=== PATIENT | male | born 1965 | race Caucasian/White ===

== ENCOUNTER 2017-06-24 07:36 | Observation (INO) | payer BC ==
--- NOTE | 2017-06-24 08:02 | EKG REPORT ---
SEVERITY:- BORDERLINE ECG - SINUS RHYTHM : Confirmed by: Srinath Samuels MD 24-Jun-2017 08:00:41
[2017-06-24] MEDS ORDERED: ASPIRIN 81 MG TABLET, CHEWABLE PO ONE (08:05)
[2017-06-24 08:24] LABS: ABSOLUTE BASOPHILS # (AUTO) 0.1 10^3/uL (0.0-0.2); ABSOLUTE EOSINOPHILS # (AUTO) 0.2 10^3/uL (0.0-0.6); ABSOLUTE LYMPHOCYTES (AUTO) 2.7 10^3/uL (0.5-4.7); ABSOLUTE NEUT (AUTO) 6.5 10^3/uL (1.7-8.2); BASOPHILS % (AUTO) 0.8 % (0-2); EOSINOPHILS % (AUTO) 1.7 % (0-6); HEMATOCRIT 50.2 % (37.9-51.0); HEMOGLOBIN 17.3 g/dL (13.5-17.0); HGB HCT DIFFERENCE 1.7; LYMPHOCYTES % (AUTO) 25.6 % (13-45); MEAN CORPUSCULAR HEMOGLOBIN 31.5 pg (27.0-33.4); MEAN CORPUSCULAR HGB CONC 34.5 g/dL (32.0-36.0); MEAN CORPUSCULAR VOLUME 91 fl (80-97); RED BLOOD COUNT 5.51 10^6/uL (4.35-5.55); RED CELL DISTRIBUTION WIDTH 12.7 % (11.5-14.0); SEGMENTED NEUTROPHILS % (AUTO) 61.9 % (42-78); WHITE BLOOD COUNT 10.4 10^3/uL (4.0-10.5)
[2017-06-24 08:49] LABS: ALANINE AMINOTRANSFERASE 57 U/L (21-72); ALBUMIN 4.9 g/dL (3.5-5.0); ALKALINE PHOSPHATASE 69 U/L (38-126); ANION GAP 13 (5-19); ASPARTATE AMINO TRANSFERASE 22 U/L (17-59); BILIRUBIN,DIRECT 0.5 mg/dL (0.0-0.4); BILIRUBIN,TOTAL 1.2 mg/dL (0.2-1.3); BLOOD UREA NITROGEN 15 mg/dL (7-20); CALCIUM 9.8 mg/dL (8.4-10.2); CARBON DIOXIDE 28 mmol/L (22-30); CHLORIDE 102 mmol/L (98-107); CREATINE KINASE 62 U/L (55-170); CREATININE RESULT 1.13 mg/dL (0.52-1.25); GLUCOSE 116 mg/dL (75-110); LIPASE 61.9 U/L (23-300); POTASSIUM 4.2 mmol/L (3.6-5.0); SODIUM 143.4 mmol/L (137-145); TOTAL PROTEIN 8.4 g/dL (6.3-8.2)
[2017-06-24 09:00] LABS: TROPONIN I < 0.012 ng/mL
--- NOTE | 2017-06-24 09:03 | RADIOLOGY REPORT (SQ) ---
EXAM DESCRIPTION: CHEST SINGLE VIEW COMPLETED DATE/TIME: 06/24/2017 8:36 am REASON FOR STUDY: cp COMPARISON: None. EXAM PARAMETERS: NUMBER OF VIEWS: One view. TECHNIQUE: Single frontal radiographic view of the chest acquired. RADIATION DOSE: NA LIMITATIONS: None. FINDINGS: LUNGS AND PLEURA: No opacities, masses or pneumothorax. No pleural effusion. MEDIASTINUM AND HILAR STRUCTURES: No masses. Contour normal. HEART AND VASCULAR STRUCTURES: Heart normal in size. Normal vasculature. BONES: No acute findings. HARDWARE: None in the chest. OTHER: No other significant finding. IMPRESSION: NO ACUTE RADIOGRAPHIC FINDING IN THE CHEST. TECHNICAL DOCUMENTATION: JOB ID: [id number] [employer]- All Rights Reserved
[2017-06-24 09:05] LABS: APPEARANCE,URINE CLEAR; BILIRUBIN,URINE NEGATIVE (NEGATIVE); GLUCOSE, URINE NEGATIVE (NEGATIVE); KETONES,URINE NEGATIVE (NEGATIVE); LEUKOCYTE ESTERASE,URINE NEGATIVE (NEGATIVE); NITRITE,URINE NEGATIVE (NEGATIVE); PROTEIN,URINE NEGATIVE (NEGATIVE); URINE SPECIFIC GRAVITY 1.015; UROBILINOGEN,URINE NEGATIVE mg/dL (<2.0)
--- NOTE | 2017-06-24 09:32 | ER Document Report ---
ED Cardiac - General Chief Complaint: Chest Pain Stated Complaint: CHEST PAIN Time Seen by Provider: 06/24/17 08:02 Mode of Arrival: Ambulatory Information source: Patient Notes: Patient is a 52-year-old male who presents to the ER today for approximately 20 minutes of chest pain this morning at 7 AM that was on and off. Patient states that it did radiate up to his left shoulder. He states that he was trying to get dressed and get the kids ready to go to school when it came on. He states the pain felt like a sharp pain. He denies any history of any heart attack or stroke, but does take medication for high blood pressure and high cholesterol. He denies any shortness of breath or nausea with this. He denies any radiation into the left arm or the left jaw. He denies smoking. TRAVEL OUTSIDE OF THE [place] IN LAST 30 DAYS: No - Related Data Allergies/Adverse Reactions: No Known Allergies Allergy (Unverified 06/24/17 07:47) Home Medications: Current Home Medications Amlodipine Besylate [Norvasc 5 mg Tablet] 5 mg PO DAILY 06/24/17 [History] Atorvastatin Calcium [Lipitor 10 mg Tablet] 10 mg PO QHS 06/24/17 [History] Multivitamin [Tab-A-Barry (Multiple Vitamin) Tablet] 1 tab PO DAILY 06/24/17 [ History] Past Medical History - General Information source: Patient - Social History Smoking Status: Never Smoker Frequency of alcohol use: None Drug Abuse: None Family History: Reviewed & Not Pertinent Patient has suicidal ideation: No Patient has homicidal ideation: No Renal/ Medical History: Denies: Hx Peritoneal Dialysis Review of Systems - Review of Systems Constitutional: No symptoms reported EENT: No symptoms reported Cardiovascular: See HPI Respiratory: No symptoms reported Gastrointestinal: No symptoms reported Genitourinary: No symptoms reported Male Genitourinary: No symptoms reported Musculoskeletal: No symptoms reported Skin: No symptoms reported Hematologic/Lymphatic: No symptoms reported Neurological/Psychological: No symptoms reported Physical Exam - Vital signs Vitals: Temp Pulse Resp BP Pulse Ox 98.0 F 105 H 16 150/99 H 99 06/24/17 07:49 06/24/17 07:49 06/24/17 07:49 06/24/17 07:49 06/24/17 07:49 - Notes Notes: PHYSICAL EXAMINATION: GENERAL: Well-appearing and in no acute distress. HEAD: Atraumatic, normocephalic. EYES: Pupils equal round and reactive to light, extraocular movements intact, sclera anicteric, conjunctiva are normal. ENT: ear canals without erythema or foreign body, TMs [place] with good bony landmarks, nares patent, oropharynx clear without exudates. Moist mucous membranes. NECK: Normal range of motion, supple without lymphadenopathy LUNGS: CTAB and equal. No wheezes rales or rhonchi. HEART: Regular rate and rhythm without murmurs ABDOMEN: Soft, no tenderness. No guarding, no rebound BACK: no vertebral tenderness, normal ROM GI/: no CVA tenderness EXTREMITIES: Normal range of motion, no pitting edema. No cyanosis. NEUROLOGICAL: Cranial nerves grossly intact. Normal sensory/motor exams. PSYCH: Normal mood, normal affect. SKIN: Warm, Dry, normal turgor, no rashes or lesions noted Course - Re-evaluation Re-evalutation: 06/24/17 11:02 Lab work is unremarkable today including normal cardiac enzymes 1, EKG reveals no evidence of ischemia or abnormality with a normal sinus rhythm, chest x ray negative, is patient does have risk factors including age, hypertension, hyperlipidemia and unknown family history. At this time patient was admitted for chest pain rule out, stress test to be done here in the hospital. Heart score is 2-3, giving him a 0.9-1.7% chance of major adverse cardiac event in the 6 weeks. 06/24/17 11:08 - Vital Signs Vital signs: Temp Pulse Resp BP Pulse Ox 98.8 F 90 18 129/75 H 99 06/24/17 15:51 06/24/17 15:51 06/24/17 15:51 06/24/17 15:51 06/24/17 15:51 - Laboratory Result Diagrams: 06/24/17 08:10 06/24/17 08:10 Laboratory results interpreted by me: 06/24/17 06/24/17 06/24/17 08:10 08:10 08:39 Hgb 17.3 H Glucose 116 H Direct Bilirubin 0.5 H Total Protein 8.4 H Urine Blood SMALL H Discharge - Discharge Clinical Impression: Chest pain Qualifiers: Chest pain type: unspecified Qualified Code(s): R07.9 - Chest pain, unspecified Condition: Stable Disposition: ADMITTED OBSERVATION Admitting Provider: Hospitalist Unit Admitted: Telemetry
[2017-06-24] MEDS ORDERED: ONDANSETRON 4 MG TAB.RAPDIS PO PRN (10:25)
[2017-06-24] MEDS ORDERED: ACETAMINOPHEN 325 MG TABLET PO PRN (10:25)
[2017-06-24] MEDS ORDERED: ENOXAPARIN SODIUM INJ 40 MG/0.4 ML DISP.SYRIN SUBCUT ONE (11:30)
--- NOTE | 2017-06-24 16:08 | HISTORY AND PHYSICAL E ---
History and Physical NAME: TED PETERS : 1965 AGE: 52Y ADMITTED: 06/24/2017 ROOM: 530 PRIMARY CARE PROVIDER: Dr. Ricardo Nichols. CHIEF COMPLAINT: Chest pain. HISTORY OF PRESENT ILLNESS: The patient is a 52-year-old male with a past medical history of hypertension and hyperlipidemia. The patient presented to the Emergency Department with a chief complaint of chest pain. According to the patient, he was getting ready for work this morning when he noticed a sharp substernal chest pain which radiated up into his left shoulder. The patient states that the pain was very sharp and "got his attention." The patient took a few minutes in regrouping himself and during that time, he denied any nausea, vomiting. No diaphoresis, shortness of breath. The patient had spontaneous resolution of symptoms. However, because of his risk factors, he came to the Emergency Department for evaluation. Upon presentation to the Emergency Department, the patient was found to be normotensive with an unremarkable set of cardiac enzymes. EKG revealed sinus rhythm, and the patient was referred to the hospitalist for observation and management. PAST MEDICAL HISTORY: 1. Hypertension. 2. Hyperlipidemia. PAST SURGICAL HISTORY: Negative. ALLERGIES: No known drug allergies. HOME MEDICATIONS: 1. Multivitamin 1 tablet p.o. daily. 2. Lipitor 10 mg p.o. q. hour sleep. 3. Norvasc 5 mg p.o. daily. SOCIAL HISTORY: The patient currently resides at home with his , who is also his surrogate decision maker. She may be reached at [phone]. The patient is self-employed in the construction industry and operates heavy machinery. The patient denies any tobacco use or illicit drug use. The patient does admit to frequent drinking, but denies drinking on a nightly basis. Denies any previous history of withdrawal or suspected dependency. FAMILY MEDICAL HISTORY: The patient's father is in 1991 from a plane crash. The patient's mother is alive with no known medical problems. The patient has brothers, all of which are healthy. The patient denies any family history of coronary artery disease and actually expresses longevity in his dad's side of the family. REVIEW OF SYSTEMS: CONSTITUTIONAL: The patient denies any fevers, chills, dizziness, weakness, or loss of appetite. SKIN: The patient denies any diaphoresis, rashes, bruising, itching. HEENT: Denies any vision changes, hearing loss, nasal drainage, sore throat. No headache. CARDIOVASCULAR SYSTEM: No heart palpitations or edema, but does admit to chest pain. RESPIRATORY: Denies any cough, sputum production, or hemoptysis. GASTROINTESTINAL: Denies any nausea, vomiting, diarrhea, abdominal pain, bloody hematemesis, constipation, melena, hematochezia. GENITOURINARY: Denies any hematuria, pyuria or dysuria. MUSCULOSKELETAL: Denies any acute or chronic joint pains. NEUROLOGICAL: Denies seizures, tremors, loss of consciousness. HEMATOLOGICAL: Denies any leopoldo bleeding, easy bruising. ENDOCRINE: Denies any recent weight changes. PSYCHIATRIC: Denies suicidal or homicidal ideations or intense stress. The rest of review of the other organ systems is negative. PHYSICAL EXAMINATION: GENERAL: On examination, the patient is a well-developed, well-nourished 52-year-old male who is awake, alert, and oriented to person, place, time and situation. He is verbal, conversational, ambulatory, does not appear to be in any acute distress. VITAL SIGNS: Temperature is 98.0, pulse 69, respirations 14, blood pressure 145/94, oxygen saturation 95% on room air. SKIN: Warm and dry. No rash. He is not diaphoretic. HEENT: Pupils equal, round, reactive to light and accommodation. Conjunctiva is pink. Sclera is nonicteric. There are no mouth lesions. Tongue is midline. NECK: Supple. No JVD. No palpable lymphadenopathy or thyromegaly. CARDIOVASCULAR SYSTEM: Heart is regular. There is no murmur or rub. CHEST: Clear, symmetrical, unlabored. ABDOMEN: Soft, nontender, nondistended. Bowel sounds are present. No palpable organomegaly. BACK: No CVA tenderness or sacral edema. EXTREMITIES: No clubbing, cyanosis, edema, or peripheral signs of embolization, +2 pedal pulses noted bilaterally. PSYCHIATRIC: Appropriate affect. Pleasant mood. DIAGNOSTICS: Lab values are as follows: Hematology obtained on 06/24/2017: WBCs are 3.4, hemoglobin is 17.3, hematocrit is 50.2, platelet count is 209,000. Chemistry obtained on 06/24/2017: Sodium is 143, potassium 4.2, chloride is 102, carbon dioxide 28, BUN 15, creatinine is 1.13, glucose 116, calcium is 9.8, bilirubin is 1.2, AST 22, ALT is 57, alk phos 69, CK is 62, CK-MB is 0.50. Troponin is 0.012. Total protein 8.4, albumin 4.9, lipase is 61.9. Urinalysis obtained on 06/24/2017: Color yellow, appearance clear, pH is 6.0, specific gravity is 1.015, protein negative, glucose negative, ketones negative, occult blood small, nitrite negative, bilirubin negative, urobilinogen is negative, leukocyte esterase is negative, WBCs are 0, RBCs are 2, mucus rare, ascorbic acid is negative. EKG obtained on 06/24/2017 reveals sinus rhythm. Chest x-ray obtained on 06/24/2017 reveals no acute radiographic finding of the chest. Chest x-ray obtained on 06/24/2017 reveals no acute cardiopulmonary findings. EKG obtained on 06/24/2017 reveals normal sinus rhythm. IMPRESSION AND PLAN: 1. Chest pain. We will observe the patient in continuous telemetry. We will obtain serial cardiac enzymes, fasting lipids, and start the patient on aspirin and statin therapy. We will schedule for Cardiolite stress test in the a.m. and follow. 2. Hypertension. We will resume the patient's home blood pressure medications once reconcilable. 3. Hyperlipidemia. We will continue statin. DISPOSITION: The patient is a full code. Pending the patient's symptomatology and diagnostic findings, we will reevaluate tomorrow for discharge. We will observe the patient in continuous telemetry, as the patient's expected length of stay should not surpass 2 midnights. Time spent on this admission including assessment, plan, physical examination, patient education and review of records is 40 minutes. DICTATING PHYSICIAN: NANETTE LION NP [id number] PHY#: [id number] ID: [id number] JOB#: [id number] ACCT: [id number] cc:ASTRID ALLISON M.D. >
[2017-06-24] MEDS: LANSOPRAZOLE 30 MG TAB.RAP.DR PO SCH (17:03)
[2017-06-24] MEDS: DOCUSATE SODIUM 100 MG CAPSULE PO SCH (17:04)
[2017-06-24] MEDS ORDERED: ATORVASTATIN CALCIUM 10 MG TABLET PO SCH (22:00)
[2017-06-25] MEDS: LANSOPRAZOLE 30 MG TAB.RAP.DR PO SCH (05:37)
[2017-06-25 07:40] LABS: CHOLESTEROL 186.77 mg/dL (0-200); Direct HDL 48 mg/dL (>40); TRIGLYCERIDES 131 mg/dL (<150)
[2017-06-25 07:51] LABS: DIRECT LDL 111 mg/dL (<100)
--- NOTE | 2017-06-25 08:21 | EKG REPORT ---
SEVERITY:- NORMAL ECG - SINUS RHYTHM : Confirmed by: Srinath Samuels MD 25-Jun-2017 08:20:53
[2017-06-25] MEDS ORDERED: ENOXAPARIN SODIUM INJ 40 MG/0.4 ML DISP.SYRIN SUBCUT SCH (10:00)
[2017-06-25] MEDS ORDERED: MULTIVITAMIN TABLET PO SCH (10:00)
[2017-06-25] MEDS ORDERED: AMLODIPINE BESYLATE 5 MG TABLET PO SCH ×2 (10:00→22:00)
[2017-06-25] MEDS: DOCUSATE SODIUM 100 MG CAPSULE PO SCH (11:24)
[2017-06-25] MEDS ORDERED: REGADENOSON INJ 0.4 MG/5 ML DISP.SYRIN IV ONE (12:11)
[2017-06-25 13:27] VITALS: BP 151/94
--- NOTE | 2017-06-25 14:38 | DISCHARGE SUMMARY E ---
Discharge Summary NAME: TED PETERS : 1965 AGE: 52Y ADMITTED: 06/24/2017 DISCHARGED: 06/25/2017 CODE STATUS: FULL CODE. PRIMARY CARE PROVIDER: Ricardo Nichols MD DISCHARGE DIAGNOSES: 1. CHEST PAIN, MOST LIKELY SECONDARY TO ANXIETY. 2. HYPERTENSION. 3. HYPERLIPIDEMIA. DISCHARGE MEDICATIONS: 1. Lipitor 20 mg p.o. at bedtime, #30 tablets with 0 refills. 2. Multivitamin 1 tablet p.o. daily. 3. Norvasc 5 mg p.o. daily. 4. Aspirin 81 mg p.o. daily. DIET: Heart healthy. ACTIVITY: As tolerated. DIAGNOSTICS: Lab values are as follows: Hematology obtained on 06/24/2017: WBCs are 10.4, hemoglobin 17.3, hematocrit is 50.2, platelet count is 209,000. Chemistry obtained on 06/25/2017: Sodium is 143, potassium 4.2, chloride is 102, carbon dioxide 28, BUN 15, creatinine 1.3, glucose 116, calcium is 9.8, bilirubin is 1.2, AST is 22, ALT is 57, alkaline phosphatase is 69, CK is 62, CK-MB is 0.50, troponin is 0.012. Total protein is 8.4. Albumin 4.9. Triglycerides are 131, cholesterol 186, LDL is 111, VLDL is 26, HDL is 48, lipase is 61.9. Urinalysis obtained on 06/24/2017: Color, yellow; appearance, clear; pH is 6.0; specific gravity is 1.015. Protein negative. Glucose negative. Ketones negative. Occult blood small. Nitrite negative. Bilirubin negative. Urobilinogen is negative. Leukocyte esterase is negative. WBCs 0. RBCs 2. Mucous rare. Ascorbic acid is negative. Chest x-ray obtained on 06/24/2017: Reveals no acute radiographic findings of the chest. Cardiolite stress test obtained on 06/25/2017, revealed no evidence of reversible ischemia. EKG obtained on 06/24/2017: Reveals sinus rhythm. PHYSICAL EXAMINATION: GENERAL: On examination, the patient is a well-developed, well-nourished 52-year-old male who is awake, alert and oriented to person, place, time, situation. He has verbal conversation and does not appear to be in any acute distress. VITAL SIGNS: As follows: Temperature is 98.5, pulse 84, respirations 18, blood pressure is 146/87. Oxygen saturation is 100% on room air. SKIN: Warm and dry. No rashes. Not diaphoretic. HEENT: Pupils equal round and reactive to light and accommodation. Conjunctivae is pink. No JVD. CARDIOVASCULAR: Heart is regular with no murmur or rub. CHEST: Clear, symmetrical, unlabored. ABDOMEN: Soft. Nontender, nondistended. BACK: No CVA tenderness or sacral edema. EXTREMITIES: No clubbing, cyanosis, edema. PSYCHIATRIC: Appropriate affect; pleasant mood. HISTORY OF PRESENT ILLNESS: The patient is a 52-year-old male with a past medical history of hypertension and hyperlipidemia. The patient presented to the emergency department with a chief complaint of chest pain. According to the patient, he was getting ready for work this morning when he noticed a sharp substernal chest pain which radiated up into his left shoulder. Patient stated that the pain was very sharp and "got his attention." The patient took a few minutes of regrouping himself and during that time, he denied any nausea, vomiting. There was no diaphoresis or shortness of breath. The patient has spontaneous resolution of symptoms; however, given his risk factors, he came to the emergency department for evaluation. Upon presentation to the emergency department, the patient was found to be normotensive with an unremarkable set of cardiac enzymes. EKG revealed sinus rhythm, and the patient was referred to the hospitalist for observation and management. HOSPITAL COURSE: Patient was observed in continuous telemetry unit. Serial cardiac enzymes were obtained, all of which were nonsuggestive. The patient had no events on the threat monitoring analyst and the patient had no EKG changes. The patient had no replication of symptoms. The patient underwent Cardiolite stress test and findings were negative. The patient was noted to have a mildly elevated LDL and the patient's statin was increased. The patient also had episodes of hypertension that correlated with some mild tachycardia. The patient did relate these times with times that he was quite anxious. This is pretty consistent because the patient was normotensive and was not tachycardic throughout his stay. The only times these occurred was while in the emergency department, this morning when he was awakened for the stress test, and then anxiously awaiting in the afternoon suggesting the patient may have some significant anxiety which he does manifest with physical symptoms. The patient acknowledged that his chest pain symptoms may be consistent with anxiety. Regardless, he is going to be mindful of this. I did discuss treating the patient's hypertension; however, given how well-controlled his blood pressure typically is, I am fearful if I increase the patient's blood pressure medication that he may actually become hypotensive or feel poorly. The patient does have a followup with his primary care provider next month for his yearly physical and he will address it at that time. DISCHARGE PLANNING: The patient is advised to follow up with primary care provider as already appointed and scheduled. Time spent on this discharge including assessment, plan, physical examination, patient education and family meeting as well as specialty collaboration is 25 minutes. DICTATING PHYSICIAN: NANETTE LION NP [id number] PHY#: [id number] ID: [id number] JOB#: [id number] ACCT: [id number] cc:JEREMY YANCEY M.D. > MTDD
--- NOTE | 2017-06-28 13:42 | DRAGON STRESS TEST REPORT ---
Intravenous Lexiscan Cardiolite stress test using single photon emmision computerized tomography. Date of procedure: 06/25/2017. Ordering Provider: Dr. hCavez. Patient's status: In Patient Indication: Chest pain. Coronary risk factors: Age. Resting EKG: Sinus Tachycardia. Within normal limits. Stress EKG: No changes of ischemia. The patient had no chest pain or discomfort, and there were no arrhythmias seen. Reason for termination: Protocol. Conclusions: Normal EKG and hemodynamic response to IV Lexiscan. Nuclear data: At rest the patient was given 14.16 millicuries of technetium 99m sestamibi injected intravenously. As per protocol rest non gated SPECT images were obtained. Subsequently the patient was given intravenous Lexiscan at a dose of 0.4 mg in 5 mL intravenously, followed by flush with normal saline. Subsequently the stress dose of 41.5 millicuries of technetium 99m sestamibi was injected intravenously. As per protocol stress gated images were obtained. Nuclear interpretation: Review of images showed that all segments of the myocardium had normal perfusion at rest, and normal perfusion post stress with IV Lexiscan. All segments of the myocardium had normal motion, contraction, and thickening by gated study. T. I D. ratio was normal at 0.83. Computer read rest, and stress left ventricular ejection fraction were 79 %, and 80 %, respectively. Conclusion: 1. There is no scintigraphic evidence of Lexiscan induced myocardial ischemia. 2. There is no scintigraphic evidence of myocardial infarction/scar. Recommendations: Aggressive risk factor modification, and treating the underlying co- morbidities. [facility]
== END 2017-06-25 14:24 | disposition home or self-care (01) ==
LOC: ER 07:36 → EH 10:25 → UNDOADMOB 10:37 → EH 10:37 → 5 11:21
PROVIDERS: ADMIT Hospitalist; ATTEND Hospitalist
DX: R07.9 Chest pain, unspecified (principal); I10 Essential (primary) hypertension; E78.5 Hyperlipidemia, unspecified; R07.2 Precordial pain; R00.0 Tachycardia, unspecified; Z79.899 Other long term (current) drug therapy
CPT/HCPCS: 93005 ×2; 99285; 36415 ×2; 82553; 82550; 83690; 85025; 80053; 81001; 84484; 80061; 93017; 71010; 78452; 93010 ×2; G0378 ×3; A9500; J2785; J1650; J3490; Q9969

== ENCOUNTER 2018-03-15 00:42 | Emergency (ER) | payer BC ==
--- NOTE | 2018-03-15 01:43 | ER Document Report ---
ED Medical Screen (RME) - General Chief Complaint: Chest Pain Stated Complaint: CHEST PAIN Time Seen by Provider: 03/15/18 01:39 Notes: Patient presents for concern of chest pain. He states approximately 11 PM he was watching a movie with his when he started experiencing short bursts of chest pain that was located parasternal mid to lower left chest wall. It is hard for him to describe the quality of the pain but he states it only lasted approximately 3-5 seconds. The best he can explain the quality as is a burning sensation. He states he has had approximately 6 episodes since 11 PM all lasting in a very short less than 5 seconds each time. The pain was nonradiating to his back jaw shoulders or arm. He states over the last week he feels like he has been having symptoms of indigestion (feeling like he wants to burp), but does not take any medications for GERD. He is on Norvasc and Lipitor. No history of heart attack or stroke. No history of heart attacks with his siblings or mother or father. He states that he was evaluated in May of last year and had a normal stress test at this facility for chest pain but this type of pain that he experienced today was different. He denies any shortness of breath with exertion. I have greeted and performed a rapid initial assessment of this patient. A comprehensive ED assessment and evaluation of the patient, analysis of test results and completion of the medical decision making process will be conducted by additional ED providers. PHYSICAL EXAMINATION: GENERAL: Well-appearing, well-nourished and in no acute distress. HEAD: Atraumatic, normocephalic. EYES: Pupils equal round extraocular movements intact, conjunctiva are normal. ENT: Nares patent NECK: Normal range of motion LUNGS: No respiratory distress Musculoskeletal: Normal range of motion NEUROLOGICAL: Normal speech, normal gait. PSYCH: Normal mood, normal affect. SKIN: Warm, Dry, normal turgor, no rashes or lesions noted. TRAVEL OUTSIDE OF THE [place] IN LAST 30 DAYS: No - Related Data Allergies/Adverse Reactions: No Known Allergies Allergy (Unverified 06/24/17 07:47) Past Medical History - Past Medical History Cardiac Medical History: Reports: Hx Hypertension Renal/ Medical History: Denies: Hx Peritoneal Dialysis - Immunizations History of Influenza Vaccine for 04/2017 - 09/2017 Season: Refused Physical Exam - Vital signs Vitals: Temp Pulse Resp BP Pulse Ox 99.4 F 79 16 142/81 H 98 03/15/18 00:57 03/15/18 00:57 03/15/18 00:57 03/15/18 00:57 03/15/18 00:57 Course - Vital Signs Vital signs: Temp Pulse Resp BP Pulse Ox 99.4 F 79 16 142/81 H 98 03/15/18 00:57 03/15/18 00:57 03/15/18 00:57 03/15/18 00:57 03/15/18 00:57 Doctor's Discharge - Discharge Referrals: TRENT JOHNSTON MD [Primary Care Provider] - Follow up as needed
--- NOTE | 2018-03-15 02:31 | RADIOLOGY REPORT (SQ) ---
EXAM DESCRIPTION: XR CHEST 1 VIEW COMPLETED DATE/TME: 03/15/2018 01:26 CLINICAL HISTORY: 52 years Male, chest pain COMPARISON: 06/24/2017. NUMBER OF VIEWS/TECHNIQUE: 1/AP FINDINGS: Adequate lung volume, clear parenchyma, normal cardiac silhouette, and intact bony thorax. IMPRESSION: No acute cardiopulmonary findings.
[2018-03-15 02:39] LABS: ABSOLUTE BASOPHILS # (AUTO) 0.1 10^3/uL (0.0-0.2); ABSOLUTE EOSINOPHILS # (AUTO) 0.2 10^3/uL (0.0-0.6); ABSOLUTE LYMPHOCYTES (AUTO) 2.6 10^3/uL (0.5-4.7); ABSOLUTE MONOCYTES (AUTO) 1.2 10^3/uL (0.1-1.4); ABSOLUTE NEUT (AUTO) 5.9 10^3/uL (1.7-8.2); BASOPHILS % (AUTO) 0.8 % (0-2); EOSINOPHILS % (AUTO) 1.7 % (0-6); HEMATOCRIT 50.4 % (37.9-51.0); HEMOGLOBIN 17.2 g/dL (13.5-17.0); LYMPHOCYTES % (AUTO) 26.3 % (13-45); MEAN CORPUSCULAR HEMOGLOBIN 31.7 pg (27.0-33.4); MEAN CORPUSCULAR HGB CONC 34.1 g/dL (32.0-36.0); MEAN CORPUSCULAR VOLUME 93 fl (80-97); MONOCYTES % (AUTO) 12.3 % (3-13); PLATELET COUNT 224 10^3/uL (150-450); RED BLOOD COUNT 5.42 10^6/uL (4.35-5.55); RED CELL DISTRIBUTION WIDTH 12.8 % (11.5-14.0); SEGMENTED NEUTROPHILS % (AUTO) 58.9 % (42-78); TOTAL CELLS COUNTED % (AUTO) 100 %
[2018-03-15 03:17] LABS: ALANINE AMINOTRANSFERASE 41 U/L (21-72); ALBUMIN 4.9 g/dL (3.5-5.0); ALKALINE PHOSPHATASE 69 U/L (38-126); ANION GAP 16 (5-19); ASPARTATE AMINO TRANSFERASE 22 U/L (17-59); BILIRUBIN,DIRECT 0.3 mg/dL (0.0-0.4); BILIRUBIN,TOTAL 0.6 mg/dL (0.2-1.3); BLOOD UREA NITROGEN 15 mg/dL (7-20); CALCIUM 10.3 mg/dL (8.4-10.2); CARBON DIOXIDE 27 mmol/L (22-30); CHLORIDE 105 mmol/L (98-107); GLUCOSE 100 mg/dL (75-110); POTASSIUM 4.4 mmol/L (3.6-5.0); SODIUM 148.3 mmol/L (137-145); TOTAL PROTEIN 8.7 g/dL (6.3-8.2)
[2018-03-15] MEDS ORDERED: FAMOTIDINE 20 MG TABLET PO ONE (03:59)
[2018-03-15] MEDS ORDERED: ASPIRIN 81 MG TABLET, CHEWABLE PO ONE (03:59)
--- NOTE | 2018-03-15 03:59 | ER Document Report ---
ED General - General Chief Complaint: Chest Pain Stated Complaint: CHEST PAIN Time Seen by Provider: 03/15/18 01:39 Notes: Patient is a 52-year-old male that comes to the ED for chief complaint of chest pain. He states that approximately 11 PM he was watching a movie when he started feeling discomfort over the mid to left side of his chest which felt like a sharp burning discomfort without radiation, he denies nausea vomiting, he states symptoms last for a couple of minutes and then resolved. He has had several episodes of this. He denies shortness of breath, dizziness. He states that he has had a lot of belching episodes over the past few days and he continually feels like he needs to belch in addition to this. He drinks approximately 2 beers daily, he states he also had spicy food which made this worse. He is not on medications for GERD. He does take hypertension and hyperlipidemia medications. He denies smoking, recreational drugs, he had a negative stress test last May, no family history of ID. He denies any current symptoms. TRAVEL OUTSIDE OF THE [place] IN LAST 30 DAYS: No - Related Data Allergies/Adverse Reactions: No Known Allergies Allergy (Verified 03/15/18 03:42) Past Medical History - General Information source: Patient - Social History Smoking Status: Never Smoker Frequency of alcohol use: daily Drug Abuse: None Lives with: Family Family History: Reviewed & Not Pertinent Patient has suicidal ideation: No Patient has homicidal ideation: No - Past Medical History Cardiac Medical History: Reports: Hx Hypercholesterolemia, Hx Hypertension Renal/ Medical History: Denies: Hx Peritoneal Dialysis - Immunizations Hx Diphtheria, Pertussis, Tetanus Vaccination: Yes Review of Systems - Review of Systems Constitutional: No symptoms reported EENT: No symptoms reported Cardiovascular: See HPI Respiratory: No symptoms reported Gastrointestinal: See HPI Genitourinary: No symptoms reported Male Genitourinary: No symptoms reported Musculoskeletal: No symptoms reported Skin: No symptoms reported Hematologic/Lymphatic: No symptoms reported Neurological/Psychological: No symptoms reported Physical Exam - Vital signs Vitals: Temp Pulse Resp BP Pulse Ox 99.4 F 79 16 142/81 H 98 03/15/18 00:57 03/15/18 00:57 03/15/18 00:57 03/15/18 00:57 03/15/18 00:57 - Notes Notes: GENERAL: Alert, interacts well. No acute distress. HEAD: Normocephalic, atraumatic. EYES: Pupils equal, round, and reactive to light. Extraocular movements intact. ENT: Oral mucosa moist, tongue midline. NECK: Full range of motion. Supple. Trachea midline. LUNGS: Clear to auscultation bilaterally, no wheezes, rales, or rhonchi. No respiratory distress. HEART: Regular rate and rhythm. No murmur ABDOMEN: Soft, non-tender. Non-distended. Bowel sounds present in all 4 quadrants. EXTREMITIES: Moves all 4 extremities spontaneously. No edema, normal radial and dorsalis pedis pulses bilaterally. No cyanosis. BACK: no cervical, thoracic, lumbar midline tenderness. No saddle anesthesia, normal distal neurovascular exam. NEUROLOGICAL: Alert and oriented x3. Normal speech. [cranial nerves II through XII grossly intact]. PSYCH: Normal affect, normal mood. SKIN: Warm, dry, normal turgor. No rashes or lesions noted. Course - Re-evaluation Re-evalutation: EKG sinus rhythm with no T-wave inversions or ST segment changes in leads. No significant change from prior. Chest x-ray unremarkable. Patient asymptomatic on my evaluation. He reports a very gastrointestinal symptoms including belching, burning. He drinks alcohol daily. Abdominal exam unremarkable. No black stools or vomiting reported. CBC, chemistry unremarkable. Troponin is negative. Discussed with patient. He has had a recent stress test, he has very atypical symptoms, discussed possible telemetry with observation because of hypertension, hyperlipidemia, and age although this puts his heart score at 3. Patient declines. Patient does agree to stay for second troponin. This was negative. Discussed recommendations, close follow-up, and return precautions in great detail with patient and at bedside. Patient states understanding and agreement. - Vital Signs Vital signs: Temp Pulse Resp BP Pulse Ox 98 F 71 14 139/81 H 97 03/15/18 06:44 03/15/18 06:44 03/15/18 06:44 03/15/18 06:44 03/15/18 06:44 - Laboratory Result Diagrams: 03/15/18 02:15 03/15/18 02:15 Laboratory results interpreted by me: 03/15/18 03/15/18 02:15 02:15 Hgb 17.2 H Sodium 148.3 H Calcium 10.3 H Total Protein 8.7 H Discharge - Discharge Clinical Impression: Belching Chest pain Qualifiers: Chest pain type: unspecified Qualified Code(s): R07.9 - Chest pain, unspecified Condition: Stable Disposition: HOME, SELF-CARE Additional Instructions: Your workup tonight does not show any concerning findings. Recommendation is to take the Pepcid and Carafate as prescribed, avoid NSAIDs, caffeine, spicy foods, alcohol, smoking, and follow-up closely with primary care for additional evaluation and management. Return if you worsen in anyway including vomiting, vomiting blood, black stools , severe abdominal pain, severe chest pain, passing out, or any other concerning or worsening symptoms. Prescriptions: Famotidine [Pepcid 20 mg Tablet] 20 mg PO BID #12 tablet Sucralfate [Carafate 1 gm Tablet] 1 gm PO QID #20 tablet Referrals: TRENT JOHNSTON MD [Primary Care Provider] - Follow up as needed
[2018-03-15 06:45] VITALS: BP 139/81
--- NOTE | 2018-03-15 07:59 | EKG REPORT ---
SEVERITY:- BORDERLINE ECG - SINUS RHYTHM : Confirmed by: Srinath Samuels MD 15-Mar-2018 07:59:15
--- NOTE | 2018-03-16 22:59 | EKG REPORT ---
SEVERITY:- ABNORMAL ECG - SINUS TACHYCARDIA LEFT POSTERIOR FASCICULAR BLOCK ABNRM R PROG, CONSIDER ASMI OR LEAD PLACEMENT BORDERLINE T WAVE ABNORMALITIES : Confirmed by: Jade Petty 16-Mar-2018 22:57:47
== END 2018-03-15 06:44 | disposition home or self-care (01) ==
LOC: ER 00:42
DX: R14.2 Eructation (principal); R07.9 Chest pain, unspecified; E78.00 Pure hypercholesterolemia, unspecified; I10 Essential (primary) hypertension
CPT/HCPCS: 36415; 71045; 80053; 84484; 85025; 93005; 93010; 99285